=== PATIENT | female | born 1945 | race Caucasian/White ===

== ENCOUNTER 2018-11-03 13:00 | Emergency (ER) | payer MEDICARE, BC ==
[2018-11-03 14:17] VITALS: BP 160/61
--- NOTE | 2018-11-03 14:36 | UC ---
Lower Extremity/Ankle HPI - HPI Summary HPI Summary: patient fell in the snow yesterday, she got her left foot caught and is not sure how she landed. ankle is painful , hard to bear weight and swollen - History of Current Complaint Chief Complaint: UCLowerExtremity Stated Complaint: LT ANKLE COMPLAINT Time Seen by Provider: 11/03/18 14:15 Hx Obtained From: Patient Hx Last Menstrual Period: 20yrs ?: No Onset/Duration: Sudden Onset, Lasting Days - 1 Severity Initially: Mild Severity Currently: Mild Pain Intensity: 3 Aggravating Factor(s): Standing, Ambulation Alleviating Factor(s): Rest Able to Bear Weight: No - Allergies/Home Medications Allergies/Adverse Reactions: Allergies Allergy/AdvReac Type Severity Reaction Status Date / Time No Known Allergies Allergy Verified 11/03/18 14:12 Home Medications: Home Medications Acetaminophen [Tylenol Extra Strength] 1,000 mg PO ONCE 11/03/18 [History Confirmed 11/03/18] Atorvastatin* [Lipitor*] 40 mg PO DAILY 11/03/18 [History Confirmed 11/03/18] Conjugated Estrogens TAB* [Premarin TAB*] 0.625 mg PO SEE INSTRUCTIONS 11/03/18 [History Confirmed 11/03/18] Pantoprazole TAB * [Protonix TAB*] 40 mg PO DAILY 11/03/18 [History Confirmed ] Polyethylene Glycol 3350* [Miralax*] 17 gm PO DAILY PRN 11/03/18 [History Confirmed 11/03/18] PMH/Surg Hx/FS Hx/Imm Hx Previously Healthy: Yes - Surgical History Surgical History: Yes Surgery Procedure, Year, and Place: cholecystectomy. right leg fx. bilateral partial knee replacements - Family History Known Family History: Positive: Hypertension - Social History Alcohol Use: None Substance Use Type: None Smoking Status (MU): Never Smoked Tobacco Review of Systems All Other Systems Reviewed And Are Negative: Yes Constitutional: Positive: Negative Skin: Positive: Negative Eyes: Positive: Negative ENT: Positive: Negative Respiratory: Positive: Negative Cardiovascular: Positive: Negative Gastrointestinal: Positive: Negative Genitourinary: Positive: Negative Motor: Positive: Negative Neurovascular: Positive: Negative Musculoskeletal: Positive: Arthralgia, Decreased ROM, Edema, Myalgia Neurological: Positive: Negative Psychological: Positive: Negative Is Patient Immunocompromised?: No Physical Exam Triage Information Reviewed: Yes Appearance: Well-Appearing, Well-Nourished, Pain Distress Vital Signs: Initial Vital Signs Temp 98.2 F 11/03/18 14:12 Pulse 76 11/03/18 14:12 Resp 17 11/03/18 14:12 BP 160/61 11/03/18 14:12 Pulse Ox 99 11/03/18 14:12 Vital Signs Reviewed: Yes Eye Exam: Normal ENT Exam: Normal Dental Exam: Normal Neck exam: Normal Respiratory Exam: Normal Cardiovascular Exam: Normal Abdominal Exam: Normal Abdomen Description: Positive: Nontender, No Organomegaly, Soft Bowel Sounds: Positive: Present Musculoskeletal Exam: Normal Musculoskeletal: Positive: Strength Limited @ - difficult to bear weight, ROM Limited @ - due to pain, Edema @ - on lateral left ankle Neurological Exam: Normal Neurological: Positive: Alert Psychological Exam: Normal Skin Exam: Normal Lower Extremity Course/Dx - Course Course Of Treatment: hx obtained, exam performed, meds reviewed xray obtained, fibular fracture noted, eze wrap and CAM boot placed, referred to ortho. - Differential Dx/Diagnosis Differential Diagnosis/HQI/PQRI: Fracture (Closed), Sprain, Strain Provider Diagnosis: Spiral fracture of shaft of fibula Discharge - Sign-Out/Discharge Documenting (check all that apply): Patient Departure All imaging exams completed and their final reports reviewed: No Studies - Discharge Plan Condition: Stable Disposition: HOME Patient Education Materials: Ankle Fracture (ED) Referrals: Tanisha Novoa NP [Primary Care Provider] - Additional Instructions: 1. use the CAM boot while awake. 2. USe the Eze wrap for support and compression 3. Follow up with Dr Cee monday morning. 4. Tylenol and Motrin for pain and swelling 5. Elevated the leg at rest 6. Try to keep weight bearing at a minimum. - Billing Disposition and Condition Condition: STABLE Disposition: Home
== END 2018-11-03 15:17 | disposition home or self-care (01) ==
LOC: UCCORT 13:00
DX: S82.442A Displaced spiral fracture of shaft of left fibula, initial encounter for closed fracture (principal); W00.0XXA Fall on same level due to ice and snow, initial encounter; Y92.9 Unspecified place or not applicable
CPT/HCPCS: 99202; G0463